=== PATIENT | female | born 1960 | race Caucasian/White ===

== ENCOUNTER → 2024-12-28 | Outpatient (CLI) | payer BC | END | disposition home or self-care (01) | LOC: RAD 10:25 | DX: R13.10 Dysphagia, unspecified (principal) | CPT/HCPCS: 74230; 92611 ==

== ENCOUNTER 2025-02-01 20:51 | Emergency (ER) | payer BC ==
[~2025-02-01] VITALS: Ht 157.5 cm; Wt 53.0 kg
[2025-02-01 21:25] VITALS: O2SAT 99
[2025-02-01] MEDS: KETOROLAC 15MG/ML VIAL IM ONE (22:28)
[2025-02-01 23:19] LABS: BASOPHILS % 0.5 % (0.0-2.0); EOSINOPHILS % 0.8 % (0.0-5.0); HEMATOCRIT. 31.4 % (36.0-48.0); HEMOGLOBIN. 11.1 g/dL (12.0-16.0); LYMPHOCYTES % 43.9 % (20.0-50.0); MEAN CORPUSCULAR HEMOGLOBIN 34.3 pg (28.0-32.0); MEAN CORPUSCULAR HGB CONC 35.3 g/dL (31.0-37.0); MONOCYTES % 7.7 % (2.0-8.0); NEUTROPHILS % 47.1 % (40.0-76.0); PLATELET 300 x1000/uL (130-400); RED BLOOD CELL COUNT 3.23 mill/uL (4.2-5.4); RED CELL DISTRIBUTION WIDTH 14.7 % (11.6-14.6); WHITE BLOOD COUNT 5.6 x1000/uL (4.5-11.0)
[2025-02-01 23:28] LABS: CHLORIDE 109 mEq/L (98-107); POTASSIUM 3.2 mEq/L (3.5-5.1); SODIUM 146 mEq/L (136-145)
[2025-02-01 23:29] LABS: CALCIUM 9.1 mg/dL (8.7-10.4); CARBON DIOXIDE 28 mEq/L (21-32)
[2025-02-01 23:33] LABS: TROPONIN I HIGH SENSITIVITY 6 ng/L (3.0-34)
[2025-02-01 23:34] LABS: CLARITY URINE CLEAR (CLEAR); COLOR URINE YELLOW (YELLOW); CREATININE 0.5 mg/dL (0.6-1.0); GLUCOSE 99 mg/dL (70-105); GLUCOSE URINE NEGATIVE (NEGATIVE); KETONES URINE NEGATIVE (NEGATIVE); LEUKOCYTE ESTERASE URINE TRACE (NEGATIVE); NITRITE URINE NEGATIVE (NEGATIVE); OCCULT BLOOD URINE NEGATIVE (NEGATIVE); PH URINE 5.5 (4.5-8.0); PROTEIN URINE TRACE (NEGATIVE); SPECIFIC GRAVITY URINE 1.027 (1.005-1.030); UREA NITROGEN BLOOD 12 mg/dL (9-23)
[2025-02-01 23:57] LABS: SQUAMOUS EPITHELIAL CELL URINE FEW /lpf (RARE/1+)
[2025-02-01 23:58] LABS: WBC URINE 0-2 /hpf (0-2)
[2025-02-02] LABS: RBC URINE 0-2 /hpf (0-2)
[2025-02-02 00:02] LABS: BACTERIA URINE NONE SEEN
[2025-02-02] MEDS: IOHEXOL-300 100 ML BOTTLE ONE (03:05)
[2025-02-02] MEDS ORDERED: NAPR-1176 MT (04:01)
[2025-02-02] MEDS ORDERED: LIDO-53 TP (04:01)
[2025-02-02 04:04] VITALS: TEMP 36.6
[2025-02-02 04:11] VITALS: BP 127/103; PULSE 81; RESP 16; O2SAT 97
== END 2025-02-02 04:34 | disposition home or self-care (01) ==
LOC: ER 20:51
DX: S29.9XXA Unspecified injury of thorax, initial encounter (principal); Z90.710 Acquired absence of both cervix and uterus; Z79.1 Long term (current) use of non-steroidal anti-inflammatories (NSAID); Z79.899 Other long term (current) drug therapy; Z88.5 Allergy status to narcotic agent; Z88.0 Allergy status to penicillin; V43.52XA Car driver injured in collision with other type car in traffic accident, initial encounter; Y93.89 Activity, other specified; Y92.89 Other specified places as the place of occurrence of the external cause; Y99.8 Other external cause status
CPT/HCPCS: 80048; 81003; 85025; 84484; 36415; 71045; 93005; 96372; 99285; 71260; J1885; Z7610; Q9967